=== PATIENT | female | born 1985 | race Caucasian/White ===

== ENCOUNTER 2017-09-14 16:10 | Observation (INO) | payer OTHER ==
[~2017-09-14 16:10] MED LIST: PREN1TAB80 PO; [UNRECOGNIZED DRUG - CODE]
[2017-09-14] MEDS ORDERED: FOLI0.4T4 PO (17:13)
[2017-09-14] MEDS ORDERED: FAMO20 PO (17:25)
[2017-09-14] MEDS ORDERED: ASPI81 PO (17:25)
[2017-09-14 18:28] VITALS: BP 121/72
== END 2017-09-14 17:55 | disposition home or self-care (01) ==
LOC: 4S 16:10
PROVIDERS: ADMIT Obstetrics & Gynecology; ATTEND Obstetrics & Gynecology
DX: O62.9 Abnormality of forces of labor, unspecified (principal); O26.893 Other specified pregnancy related conditions, third trimester; R10.30 Lower abdominal pain, unspecified; Z3A.34 34 weeks gestation of pregnancy
CPT/HCPCS: 59025; G0378

== ENCOUNTER 2017-10-18 06:33 | Inpatient (IN) | payer OTHER ==
[~2017-10-18 06:33] MED LIST changes: +ASPI81 PO; +FAMO20 PO; +FOLI0.4T4 PO; -[UNRECOGNIZED DRUG - CODE]
[2017-10-18] MEDS ORDERED: RINGERS SOLUTION,LACTATED 1,000 ML IV PRN (06:41)
[2017-10-18] MEDS ORDERED: RINGERS SOLUTION,LACTATED 1,000 ML IV ONE ×3 (06:41→07:05)
[2017-10-18] MEDS ORDERED: RINGERS SOLUTION,LACTATED 1,000 ML IV SCH (06:41)
[2017-10-18] MEDS ORDERED: CITRIC ACID/SODIUM CITRATE 30 ML SOLUTION UDCUP PO ONE ×2 (06:45)
[2017-10-18] MEDS ORDERED: CITRIC ACID/SODIUM CITRATE 30 ML SOLUTION UDCUP PO PRN (06:45)
[2017-10-18] MEDS ORDERED: METOCLOPRAMIDE HCL 5 MG/ML 2 ML VIAL IVP ONE ×2 (06:45)
[2017-10-18] MEDS ORDERED: METOCLOPRAMIDE HCL 5 MG/ML 2 ML VIAL IVP PRN (06:45)
[2017-10-18] MEDS ORDERED: MORPHINE SULFATE/PF 0.5 MG/ML 10 ML AMP ONE (07:04)
[2017-10-18] MEDS ORDERED: MIDAZOLAM HCL 2 MG/2 ML VIAL ONE (07:04)
[2017-10-18] MEDS ORDERED: SODIUM CHLORIDE 0.9% 100 ML ONE (07:05)
[2017-10-18] MEDS ORDERED: FentaNYL CITRATE-PF 100 MCG/2 ML VIAL ONE (07:05)
[2017-10-18 07:20] VITALS: BP 130/83
[2017-10-18 07:22] LABS: BASOPHILS % (AUTO) 0.3 % (0.0-2.0); EOSINOPHILS % (AUTO) 1.1 % (1.0-6.0); HEMATOCRIT 37.1 % (36-46); HEMOGLOBIN 13.3 g/dL (12.0-16.0); LYMPHOCYTES # (AUTO) 2.7 K/uL (1.0-4.8); LYMPHOCYTES % (AUTO) 29.3 % (22.0-44.0); MEAN CORPUSCULAR HEMOGLOBIN 33.5 pg (26.0-34.0); MEAN CORPUSCULAR HGB CONC 35.8 G/dL (31.0-37.0); MEAN CORPUSCULAR VOLUME 94 fL (80-100); MONOCYTES # (AUTO) 0.7 K/uL (0.1-1.0); MONOCYTES % (AUTO) 7.2 % (2.0-9.0); NEUTROPHILS # (AUTO) 5.6 K/uL (1.8-7.7); NEUTROPHILS % (AUTO) 62.1 % (40.0-70.0); RED BLOOD CELL COUNT(AUTO) 3.96 MIL/uL (4.00-5.20); RED CELL DISTRIBUTION WIDTH 13.2 % (11.5-14.5); WHITE BLOOD COUNT (AUTO) 9.1 K/uL (4.5-11.0)
[2017-10-18] MEDS ORDERED: OXYGEN THERAPY IH SCH ×3 (08:00→08:45)
[2017-10-18] MEDS ORDERED: ONDANSETRON HCL 4 MG/2 ML VIAL IVP PRN ×2 (08:45)
[2017-10-18] MEDS ORDERED: MORPHINE SULFATE 2 MG/ML SYRINGE IVP PRN (08:45)
[2017-10-18] MEDS ORDERED: MORPHINE SULFATE 4 MG/ML SYRINGE IVP PRN (08:45)
[2017-10-18] MEDS ORDERED: DiphenhydrAMINE HCL 50 MG/ML VIAL IVP PRN ×2 (08:45)
[2017-10-18] MEDS ORDERED: FentaNYL CITRATE-PF 100 MCG/2 ML VIAL IVP PRN ×2 (08:45)
[2017-10-18] MEDS ORDERED: ACETAMINOPHEN 1000 MG/ISO-OSM 100 ML IV ONE (08:56)
[2017-10-18] MEDS: MAGNESIUM HYDROXIDE SUSPENSION 30 ML UDCUP PO SCH (09:00)
[2017-10-18] MEDS ORDERED: LANOLIN 7 GM OINTMENT TP PRN (09:00)
[2017-10-18] MEDS ORDERED: ACETAMINOPHEN/CODEINE 300-30 MG TABLET PO PRN (09:00)
[2017-10-18] MEDS: ACETAMINOPHEN 1000 MG/ISO-OSM 100 ML IV SCH ×2 (09:39→17:33)
[2017-10-18] MEDS: DEXTROSE 5%-0.45% SODIUM CHL 1,000 ML IV SCH ×3 (10:53→20:13)
[2017-10-18] MEDS ORDERED: EPHEDrine SULFATE 50 MG/ML VIAL IM ONE (12:00)
[2017-10-18] MEDS ORDERED: DEXAMETHASONE SOD PHOS 4 MG/ML VIAL IVP ONE (12:00)
[2017-10-18] MEDS ORDERED: OXYTOCIN 10 UNITS/ML VIAL IM ONE (12:00)
[2017-10-18] MEDS ORDERED: ONDANSETRON HCL 4 MG/2 ML VIAL IVP ONE (12:00)
[2017-10-18] MEDS: NALBUPHINE HCL 10 MG/ML VIAL IVP SCH ×2 (12:30→17:59)
[2017-10-19] MEDS: NALBUPHINE HCL 10 MG/ML VIAL IVP SCH (00:13)
[2017-10-19] MEDS: DEXTROSE 5%-0.45% SODIUM CHL 1,000 ML IV SCH (02:01)
[2017-10-19] MEDS: ACETAMINOPHEN 1000 MG/ISO-OSM 100 ML IV SCH (02:05)
[2017-10-19] MEDS: IBUPROFEN 800 MG TABLET PO SCH ×4 (02:24→20:11)
[2017-10-19] MEDS: ACETAMINOPHEN/CODEINE 300-30 MG TABLET PO PRN (08:10)
[2017-10-19 13:55] VITALS: BP 107/62
[2017-10-19 14:05] VITALS: BP 107/62
[2017-10-19] MEDS: MAGNESIUM HYDROXIDE SUSPENSION 30 ML UDCUP PO SCH (20:27)
[2017-10-20] MEDS: IBUPROFEN 800 MG TABLET PO SCH ×4 (04:48→23:08)
[2017-10-20] MEDS: MAGNESIUM HYDROXIDE SUSPENSION 30 ML UDCUP PO SCH ×2 (09:00→21:00)
[2017-10-20] MEDS: ACETAMINOPHEN/CODEINE 300-30 MG TABLET PO PRN (13:55)
[2017-10-21] MEDS: IBUPROFEN 800 MG TABLET PO SCH ×2 (05:31→11:00)
[2017-10-21] MEDS ORDERED: SENNA/DOCUSATE SODIUM 187-50 MG TABLET PO ONE (09:45)
[2017-10-21] MEDS ORDERED: IBUP-2071 PO (10:04)
[2017-10-21] MEDS ORDERED: DSS100 PO (10:04)
== END 2017-10-21 11:30 | disposition home or self-care (01) | DRG 766 ==
LOC: 4S 06:33 → PREOBSVTOIN 11-05 06:36
PROVIDERS: ADMIT Obstetrics & Gynecology; ATTEND Obstetrics & Gynecology
PROC: 10D00Z1 Extraction of Products of Conception, Low, Open Approach (ICD-10-PCS; principal; 2017-10-18)
DX: O34.211 Maternal care for low transverse scar from previous cesarean delivery (principal); Z37.0 Single live birth; Z3A.39 39 weeks gestation of pregnancy
CPT/HCPCS: 85461; 86850; 86870; 86900; 86901; 87081; J0131; J0690; J1100; J2250; J2274; J2300; J2405; J2590; J2765; J3010; J3490; J7050; J7120